=== PATIENT | female | born 1955 | race Caucasian/White ===

== ENCOUNTER 2019-05-14 01:22 | Emergency (ER) | payer MEDICARE ==
[~2019-05-14] VITALS: Ht 154.9 cm; Wt 95.0 kg
[2019-05-14] MEDS ORDERED: ONDANSETRON 2MG/ML, 2ML ONE (01:51)
[2019-05-14] MEDS ORDERED: MORPHINE SULFATE 4 MG/ML, 1ML ONE (01:51)
[2019-05-14 01:59] LABS: MEAN CORPUSCULAR HEMOGLOBIN 32.6 pg (27.0-34.8); MEAN CORPUSCULAR HGB CONC 33.2 g/dL (32.4-35.8); MEAN CORPUSCULAR VOLUME 98.3 fL (80-100); MEAN PLATELET VOLUME 8.9 fL (7.4-10.4); PLATELET COUNT 305 x10^3/uL (130-400); RED BLOOD COUNT 4.36 x10^6/uL (3.82-5.3); RED CELL DISTRIBUTION WIDTH 15.1 % (9.6-15.2)
[2019-05-14] MEDS ORDERED: ONDANSETRON 2MG/ML, 2ML IVPush ONE (02:00)
[2019-05-14] MEDS ORDERED: SODIUM CHLORIDE FLUSH 10ML SYR IVF ONE (02:00)
[2019-05-14] MEDS ORDERED: MORPHINE SULFATE 4 MG/ML, 1ML IVPush PRN (02:00)
[2019-05-14 02:11] LABS: ALANINE AMINOTRANSFERASE 20 U/L (12-78); ALBUMIN 3.9 g/dL (3.4-5.0); ANION GAP 9 mmol/L (5-15); CALCIUM 10.2 mg/dL (8.5-10.1); CHLORIDE 103 mmol/L (98-107); CREATININE 1.32 mg/dL (0.55-1.02)
[2019-05-14 02:12] LABS: BASOPHILS # (AUTO) 0.04 x10^3/uL (0-0.1); BASOPHILS % (AUTO) 0 % (0-1); EOSINOPHILS # (AUTO) 0.22 x10^3/uL (0-0.4); EOSINOPHILS % (AUTO) 1 % (1-7); LYMPHOCYTES # (AUTO) 3.79 x10^3/uL (1-3.4); LYMPHOCYTES % (AUTO) 19 % (22-44); MD SCAN; MICROSCOPIC AUTO; MONOCYTES % (AUTO) 4 % (2-9); NEUTROPHILS # (AUTO) 14.82 x10^3/uL (1.8-6.8); NEUTROPHILS % (AUTO) 76 % (42-75)
[2019-05-14 02:13] LABS: ALKALINE PHOSPHATASE 119 U/L (45-117); BILIRUBIN,TOTAL 0.5 mg/dL (0.2-1.0); TOTAL PROTEIN 7.3 g/dL (6.4-8.2)
[2019-05-14 02:14] LABS: CULTURE INDICATED? YES
--- NOTE | 2019-05-14 02:16 | NUR ---
PT C/O LEFT SIDED FLANK PAIN THAT RADIATES TO HER LEFT ABD THAT STARTED LAST NIGHT. PT WITH NAUSEA, DENIES VOMITTING. PAIN 11/18. MEDICATED FOR PAIN PER EMAR.
--- NOTE | 2019-05-14 02:17 | NUR ---
PT AMBULATES TO THE BATHROOM WITH A STEADY GAIT
--- NOTE | 2019-05-14 03:11 | NUR ---
PT RESTING ON GURNEY. NO ACUTE DISTRESS. STATES PAIN IS NOW 0/10. NO REQUESTS AT THIS TIME
[2019-05-14 03:50] VITALS: BP 141/70
== END 2019-05-14 03:52 | disposition home or self-care (01) ==
LOC: ED 03:03
DX: N13.2 Hydronephrosis with renal and ureteral calculous obstruction (principal); I10 Essential (primary) hypertension; E11.9 Type 2 diabetes mellitus without complications
CPT/HCPCS: 36415; 74176; 80053; 81001; 83690; 85025; 87086; 93005; 96374; 96375; 99284; J2270; J2405

== ENCOUNTER → 2019-12-05 | Outpatient (CLI) | payer MEDICARE ==
[~2019-12-05] MED LIST: ATOR40TA78 PO; CEPH-376 PO; FLUO10TA PO; GABA-827 PO; HYDR-2442 PO; INSU100I28 SQ; LISI1TAB19 PO; METF500T17 PO
[2019-12-05 14:14] LABS: BASOPHILS # (AUTO) 0.03 x10^3/uL (0-0.1); BASOPHILS % (AUTO) 0 % (0-1); EOSINOPHILS # (AUTO) 0.27 x10^3/uL (0-0.4); EOSINOPHILS % (AUTO) 3 % (1-7); LYMPHOCYTES # (AUTO) 2.25 x10^3/uL (1-3.4); LYMPHOCYTES % (AUTO) 22 % (22-44); MD NO; MEAN CORPUSCULAR HEMOGLOBIN 32.2 pg (27.0-34.8); MEAN CORPUSCULAR HGB CONC 33.6 g/dL (32.4-35.8); MEAN CORPUSCULAR VOLUME 95.6 fL (80-100); MEAN PLATELET VOLUME 8.1 fL (7.4-10.4); MONOCYTES # (AUTO) 0.39 x10^3/uL (0.2-0.8); MONOCYTES % (AUTO) 4 % (2-9); NEUTROPHILS # (AUTO) 7.36 x10^3/uL (1.8-6.8); NEUTROPHILS % (AUTO) 72 % (42-75); PLATELET COUNT 289 x10^3/uL (130-400); RED BLOOD COUNT 4.39 x10^6/uL (3.82-5.3); RED CELL DISTRIBUTION WIDTH 14.4 % (9.6-15.2)
[2019-12-05 14:18] LABS: MICROSCOPIC AUTO
[2019-12-05 14:19] LABS: INTERNATIONAL NORMALIZED RATIO 0.95 (0.93-1.1); PROTHROMBIN TIME 10.1 Seconds (9.6-11.5)
[2019-12-05 14:20] LABS: ALANINE AMINOTRANSFERASE 30 U/L (12-78); ALBUMIN 3.5 g/dL (3.4-5.0); ANION GAP 7 mmol/L (5-15); CALCIUM 10.3 mg/dL (8.5-10.1); CHLORIDE 105 mmol/L (98-107)
[2019-12-05 14:23] LABS: ALKALINE PHOSPHATASE 97 U/L (45-117); BILIRUBIN,TOTAL 0.4 mg/dL (0.2-1.0); TOTAL PROTEIN 7.5 g/dL (6.4-8.2)
== END | disposition home or self-care (01) ==
LOC: STAR 13:17
PROVIDERS: ATTEND Neurological Surgery
DX: Z01.818 Encounter for other preprocedural examination (principal); Z01.812 Encounter for preprocedural laboratory examination; Z01.811 Encounter for preprocedural respiratory examination; M47.896 Other spondylosis, lumbar region; M48.061 Spinal stenosis, lumbar region without neurogenic claudication; R79.1 Abnormal coagulation profile; R82.90 Unspecified abnormal findings in urine; R94.31 Abnormal electrocardiogram [ECG] [EKG]; M51.37 Other intervertebral disc degeneration, lumbosacral region; M48.07 Spinal stenosis, lumbosacral region
CPT/HCPCS: 36415; 71046; 72110; 80053; 81001; 85025; 85610; 85730; 87086; 93005; U0001-CS